=== PATIENT | male | born 1955 | race Caucasian/White ===

== ENCOUNTER 2024-05-31 20:52 | Inpatient (IN) | payer MEDICARE ==
[~2024-05-31] VITALS: Ht 180.3 cm; Wt 109.8 kg
[~2024-05-31 20:52] MED LIST: ATIV0.5T; ATIV1TAB2; BUDE150T; TRAZ100T; WELL100T; XANA1TAB2; ZOLO100T
[2024-05-31 21:38] LABS: BASO % 0.5 % (0.0-1.0); EOS # 0.1 10^3/uL (0.0-0.5); EOS % 0.9 % (0.0-3.0); HEMATOCRIT 35.5 % (42.0-52.0); HEMOGLOBIN 12.1 g/dl (13.5-17.5); LYMPH # 0.8 10^3/uL (1.5-5.0); LYMPH % 10.3 % (24.0-44.0); MEAN CORPUSCULAR HGB CONC 34.1 g/dl (32.0-36.5); MONO # 0.6 10^3/uL (0.0-0.8); MONO % 7.1 % (2.0-8.0); NEUTROPHILS # 6.3 10^3/uL (1.5-8.5); NEUTROPHILS % 80.9 % (36.0-66.0); PLATELET COUNT, AUTOMATED 218 10^3/uL (150-450); WHITE BLOOD COUNT 7.8 10^3/uL (4.0-10.0)
[2024-05-31] MEDS: ASPIRIN 81MG CHEW TABLET PO ONE (21:42)
[2024-05-31] MEDS: dilTIAZem 25MG/5ML VIAL IV STA ×2 (21:43→22:23)
[2024-05-31 22:12] LABS: CK-MB VALUE MASS < 1.0 NG/ML (<3.6)
[2024-05-31 22:13] LABS: CPK CREATINE PHOSPHOKINASE 54 U/L (46-171); MB/CK RELATIVE INDEX 1.85 (< OR =4)
[2024-05-31 22:14] LABS: BLOOD UREA NITROGEN 12 MG/DL (9-23); CALCIUM LEVEL 8.6 MG/DL (8.3-10.6); CARBON DIOXIDE LEVEL 22 MMOL/L (20-31); CHLORIDE LEVEL 105 MMOL/L (98-107); CREATININE FOR GFR 0.98 MG/DL (0.70-1.30); GLOMERULAR FILTRATION RATE > 60.0 (>49); GLUCOSE, FASTING 148 MG/DL (74-106); POTASSIUM SERUM 4.1 MMOL/L (3.5-5.1); SODIUM LEVEL 139 MMOL/L (136-145)
[2024-05-31 22:23] VITALS: BP 144/97
[2024-05-31] MEDS ORDERED: ISOVUE-370 76% 100ML VIAL As Ordered ONE (22:42)
[2024-05-31 23:05] LABS: CK-MB VALUE MASS < 1.0 NG/ML (<3.6)
[2024-05-31 23:06] LABS: CPK CREATINE PHOSPHOKINASE 56 U/L (46-171); MB/CK RELATIVE INDEX 1.78 (< OR =4)
[2024-05-31] MEDS: ESMOLOL HCL 2,000 MG in IV 1 EA IV SCH ×2 (23:08→23:50)
[2024-05-31] MEDS ORDERED: MOM 30ML SUSPENSION UDC PO PRN (23:45)
[2024-06-01] VITALS (21 sets, daily range): BP systolic 83–166; BP diastolic 54–90; TEMP 97.7–98; O2SAT 91–99
[2024-06-01] MEDS ORDERED: VENL150C43 PO (00:38)
[2024-06-01] MEDS ORDERED: HOME MED LIST COMPLETE! XX SCH (00:40)
[2024-06-01] MEDS: FUROSEMIDE 20MG/2ML VIAL IV ONE (01:44)
[2024-06-01] MEDS: PROMETHAZINE 25MG/ML 1ML VIAL IV PRN (03:19)
[2024-06-01 04:49] LABS: HEMATOCRIT 34.5 % (42.0-52.0); HEMOGLOBIN 11.2 g/dl (13.5-17.5); MEAN CORPUSCULAR HGB CONC 32.5 g/dl (32.0-36.5); MEAN CORPUSCULAR VOLUME 92.5 fl (80.0-96.0); PLATELET COUNT, AUTOMATED 229 10^3/uL (150-450); RED BLOOD COUNT 3.73 10^6/uL (4.30-6.10); WHITE BLOOD COUNT 8.6 10^3/uL (4.0-10.0)
[2024-06-01 05:21] LABS: ALBUMIN 3.1 G/DL (3.2-5.2); BILIRUBIN,TOTAL 0.7 MG/DL (0.3-1.2); CALCIUM LEVEL 8.5 MG/DL (8.3-10.6); CREATININE FOR GFR 1.28 MG/DL (0.70-1.30); GLOMERULAR FILTRATION RATE 59.7 (>49); POTASSIUM SERUM 4.9 MMOL/L (3.5-5.1); TOTAL PROTEIN 5.9 G/DL (5.7-8.2)
[2024-06-01 06:43] LABS: THYROID STIMULATING HORMONE 1.545 uIU/ML (0.55-4.78)
[2024-06-01] MEDS ORDERED: ACETAMINOPHEN 325 MG TAB PO PRN (08:20)
[2024-06-01] MEDS ORDERED: HEPARIN SOD (PORCINE) 5000UNITS/ML 1ML VIAL/SYRINGE IV PRN (09:50)
[2024-06-01] MEDS: VENLAFAXINE **XR** 75MG CAPSULE PO SCH (09:55)
[2024-06-01] MEDS: ENOXAPARIN 40MG/0.4ML SYRINGE (J1650 PER 10MG) SC SCH (09:55)
[2024-06-01] MEDS: HEPARIN DRIP 25,000 UNITS in IV 1 EA IV SCH (10:53)
[2024-06-01] MEDS: ONDANSETRON 4MG 2ML VIAL IV ONE (12:20)
[2024-06-01] MEDS: PANTOPRAZOLE 40MG VIAL IV ONE (12:23)
== END 2024-06-01 12:45 | disposition short-term general hospital (02) | DRG 309 ==
LOC: M ED 20:52 → M ED INP 23:44 → M ICU 06-01 01:29
PROVIDERS: ADMIT Internal Medicine Pulmonary Disease; ATTEND Internal Medicine Pulmonary Disease
DX: I48.92 Unspecified atrial flutter (principal); J90 Pleural effusion, not elsewhere classified; F32.A Depression, unspecified; I42.8 Other cardiomyopathies; R00.0 Tachycardia, unspecified; Z88.0 Allergy status to penicillin; F17.200 Nicotine dependence, unspecified, uncomplicated; F10.10 Alcohol abuse, uncomplicated; F12.90 Cannabis use, unspecified, uncomplicated